=== PATIENT | male | born 1975 | race Caucasian/White ===

== ENCOUNTER 2016-04-05 21:18 | Emergency (ER) | payer BC ==
[2016-04-06] MEDS ORDERED: DEXAMETHASONE 10 MG/ML VIAL PO STA (00:25)
[2016-04-06] MEDS ORDERED: CHERRY SYRUP 10 ML UDC PO ONE (00:28)
[2016-04-06] MEDS ORDERED: DEXAMETHASONE 10 MG/ML VIAL ONE (00:28)
[2016-04-06] MEDS ORDERED: HYDROcod/ACET 5/325 Prepack 6 PO ONE ×2 (01:18)
== END 2016-04-06 01:29 | disposition home or self-care (01) ==
DX: M86.8X8 Other osteomyelitis, other site (principal); I10 Essential (primary) hypertension; G89.29 Other chronic pain; M54.9 Dorsalgia, unspecified; F17.200 Nicotine dependence, unspecified, uncomplicated
CPT/HCPCS: 36415; 74176; 80053; 81003; 83690; 85025; 85651; 87040; 99283; 99284; A9270